=== PATIENT | female | born 1980 | race Caucasian/White ===

== ENCOUNTER 2019-11-29 15:15 | Emergency (ER) | payer SELFPAY ==
[2019-11-29 15:41] VITALS: BP 122/70; TEMP 97.9
[2019-11-29 15:44] VITALS: PULSE 91; BMI 23.0
[2019-11-29] MEDS ORDERED: ALBUTEROL SO4 HFA INHALER IH ONE ×3 (15:44→16:55)
[2019-11-29] MEDS ORDERED: ACETAMINOPHEN 325 MG TABLET (FP) PO ONE (15:44)
--- NOTE | 2019-11-29 15:57 | PDOC ---
History of Present Illness - General Chief Complaint: Cold Symptoms Stated Complaint: COUGHING/WEAK Time Seen by Provider: 11/29/19 15:52 History Source: Patient Exam Limitations: No Limitations - History of Present Illness Initial Comments: 11/29/19 15:53 39 year old female with coughing, generalized bodyaches and chest pain x 2 days. Patient reports that cough is non productive and her chest pain is only with forceful coughing. Denies fever or chills, sick contact or travel. Patient reports that she works in a [employer]. Is this a multiple visit Asthma Patient?: No Timing/Duration: reports: other (2 days) Severity: reports: mild Modifying Factors: improves with: coughing Associated Symptoms: reports: cough, muscle aches Past History - Travel Traveled outside of the country in the last 30 days: No Close contact w/someone who was outside of country & ill: No - Past Medical History Allergies/Adverse Reactions: Allergies Allergy/AdvReac Type Severity Reaction Status Date / Time No Known Allergies Allergy Verified 11/29/19 15:41 Home Medications: Ambulatory Orders Azithromycin [Zithromax 250mg Tablets -] 250 mg PO UTDICT #6 tab 11/29/19 Azithromycin [Zithromax 250mg Tablets -] 250 mg PO UTDICT #6 tab 11/29/19 COPD: No - Immunization History Immunization Up to Date: Yes - Psycho Social/Smoking Cessation Hx Smoking History: Never smoked Hx Alcohol Use: No Drug/Substance Use Hx: No Respiratory Specific PMHX - Complaint Specific PMHX Hx Airway Support: No Hx Allergic Rhinitis: No Hx Pulmonary Embolus: No Review of Systems - Review of Systems Able to Perform ROS?: Yes Is the patient limited Finnish proficient: No Constitutional: No: Chills, Fever HEENTM: No: Nose Pain, Throat Swelling Respiratory: Yes: Cough. No: Shortness of Breath, Wheezing Cardiac (ROS): No: Chest Pain ABD/GI: No: Poor Appetite, Poor Fluid Intake : No: Burning, Hematuria, Incontinence Musculoskeletal: No: Back Pain, Joint Pain Neurological: No: Numbness, Paresthesia *Physical Exam - Vital Signs Last Vital Signs Temp Pulse Resp BP Pulse Ox 97.9 F 91 H 20 122/70 100 11/29/19 15:42 11/29/19 15:42 11/29/19 15:42 11/29/19 15:42 11/29/19 15:42 - Physical Exam General Appearance: Yes: Nourished, Appropriately Dressed HEENT: positive: Pharynx Normal Neck: positive: Supple. negative: Lymphadenopathy (R), Lymphadenopathy (L) Respiratory/Chest: positive: Lungs Clear Cardiovascular: positive: Regular Rhythm, Regular Rate Extremity: positive: Normal Capillary Refill Neurologic: positive: Fully Oriented, Alert Medical Decision Making - Medical Decision Making 11/29/19 15:58 39 year old female with coughing, generalized bodyaches and chest pain x 2 days. Patient reports that cough is non productive and her chest pain is only with forceful coughing. Denies fever or chills, sick contact or travel. Patient reports that she works in a [employer]. 11/29/19 16:11 viral syndrome -chest xray -acetaminophen -albuterol pump 11/29/19 17:40 chest discomfort improved with albuterol pump chest xray with no infiltrates, rx: azithromycin d/c home with social distancing instructions Discharge - Discharge Information Problems reviewed: Yes Clinical Impression/Diagnosis: Viral syndrome Condition: Good Disposition: HOME - Admission No - Additional Discharge Information Prescriptions: Azithromycin [Zithromax 250mg Tablets -] 250 mg PO UTDICT #6 tab Azithromycin [Zithromax 250mg Tablets -] 250 mg PO UTDICT #6 tab - Follow up/Referral - Patient Discharge Instructions Patient Printed Discharge Instructions: DI for Viral Upper Respiratory Infection-Child Additional Instructions: Drink plenty fluids Rest Please continue to practice social distancing You may call 311 for information about covid testing Take ibuprofen or acetaminophen for pain or fever Return to emergency room for worsening of symptoms Print Language: YAKUT - Post Discharge Activity Work/Back to School Note: Back to Work
== END 2019-11-29 17:29 | disposition home or self-care (01) ==
LOC: JER 15:15
PROC: 3E0F7GC Introduction of Other Therapeutic Substance into Respiratory Tract, Via Natural or Artificial Opening (ICD-10-PCS; principal; 2019-11-29)
DX: J06.9 Acute upper respiratory infection, unspecified (principal); B97.89 Other viral agents as the cause of diseases classified elsewhere
CPT/HCPCS: 71045-TC-FY; 99284-25

== ENCOUNTER 2023-02-22 03:44 | Day surgery (SDC) | payer OTHER ==
[2023-02-21 10:48] VITALS: BMI 27.4
[2023-02-22] MEDS ORDERED: MIDAZOLAM HCL 2 MG/2 ML SINGLE DOSE VIAL ONE (14:30)
[2023-02-22] MEDS ORDERED: PROPOFOL 20 ML ONE ×2 (14:30→15:05)
[2023-02-22] MEDS ORDERED: oxyCODONE HCL 5 MG TABLET PO PRN ×2 (15:22→15:34)
[2023-02-22] MEDS ORDERED: ONDANSETRON 4 MG/2 ML VIAL IVPUSH PRN ×2 (15:22→15:34)
[2023-02-22] MEDS ORDERED: LACTATED RINGERS SOLUTION 1,000 ML IV SCH (15:30)
[2023-02-22] MEDS ORDERED: IBUPROFEN 600 MG TABLET (FP) PO PRN (15:34)
[2023-02-22] MEDS ORDERED: IBUPROFEN 800 MG/8 ML IJ IVPB PRN (15:34)
[2023-02-22] MEDS ORDERED: ELECTROLYTE-148 SOLN 1,000 ML IV SCH (15:45)
[2023-02-22 17:38] VITALS: RESP 20
[2023-02-22 18:38] VITALS: PULSE 88; TEMP 98
[2023-02-22 18:42] VITALS: BP 102/60
== END 2023-02-22 18:44 | disposition home or self-care (01) ==
LOC: JASU-SURG 03:44
PROVIDERS: ATTEND Obstetrics & Gynecology
PROC: 0UDB8ZX Extraction of Endometrium, Via Natural or Artificial Opening Endoscopic, Diagnostic (ICD-10-PCS; principal; 2023-02-22 14:00)
DX: N93.8 Other specified abnormal uterine and vaginal bleeding (principal)
CPT/HCPCS: 88305-TC; 94760

== ENCOUNTER 2023-02-27 11:49 | Emergency (ER) | payer OTHER ==
[2023-02-27 11:59] VITALS: BP 107/71; PULSE 98; RESP 18; TEMP 97.9; BMI 27.8
[2023-02-27] MEDS ORDERED: KETOROLAC TROMETHAMINE 15 MG/ML VIAL IVPUSH ONE (12:19)
[2023-02-27] MEDS ORDERED: KETOROLAC TROMETHAMINE 15 MG/ML VIAL ONE (12:33)
[2023-02-27 13:14] LABS: BASO % 0.5 % (0-2.0); EOS % 1.1 % (0-4.5); HEMATOCRIT 34.8 % (32.4-45.2); HEMOGLOBIN 11.5 GM/dL (10.7-15.3); MCH 25.9 pg (25.7-33.7); MCHC 32.9 g/dl (32.0-36.0); MEAN CELL VOLUME 78.6 fl (80-96); MEAN PLT VOLUME 7.8 fl (7.5-11.1); MONO % 10.8 % (3.8-10.2); NEUT % 61.6 % (42.8-82.8); PLATELET COUNT 264 10^3/uL (134-434); RBC 4.43 M/mm3 (3.60-5.2); RDW 15.7 % (11.6-15.6); WHITE BLOOD COUNT 7.1 K/mm3 (4.0-10.0)
[2023-02-27 13:48] LABS: ERYTHROCYTE SEDIMENTATION RATE 7 mm/hr (0-20)
[2023-02-27 15:37] LABS: INR 1.07 (0.83-1.09); PROTHROMBIN TIME (PATIENT) 12.4 SEC (9.7-13.0)
[2023-02-27 15:40] LABS: ACTIVATED PTT 29.4 SECONDS (25.2-36.5)
[2023-02-27 16:11] LABS: POTASSIUM 4.5 mmol/L (3.5-5.1)
[2023-02-27 16:13] LABS: CALCIUM 9.1 mg/dL (8.5-10.1)
[2023-02-27 16:14] LABS: ALBUMIN 3.4 g/dl (3.4-5.0); BLOOD UREA NITROGEN 7.7 mg/dL (7-18)
[2023-02-27 16:17] LABS: CREATININE 0.6 mg/dL (0.55-1.3)
[2023-02-27 16:19] LABS: BILIRUBIN,TOTAL 0.3 mg/dL (0.2-1); TOT PROT 6.7 g/dl (6.4-8.2)
== END 2023-02-27 16:13 | disposition home or self-care (01) ==
LOC: JER 11:49
PROC: 3E033NZ Introduction of Analgesics, Hypnotics, Sedatives into Peripheral Vein, Percutaneous Approach (ICD-10-PCS; principal; 2023-02-27)
PROC: 3E033GC Introduction of Other Therapeutic Substance into Peripheral Vein, Percutaneous Approach (ICD-10-PCS; 2023-02-27)
DX: M79.602 Pain in left arm (principal); R22.32 Localized swelling, mass and lump, left upper limb; L03.114 Cellulitis of left upper limb; I82.621 Acute embolism and thrombosis of deep veins of right upper extremity
CPT/HCPCS: 36415; 80053; 85025; 85610; 85651; 85730; 86850; 86900; 86901; 93971; 99284-25

== ENCOUNTER 2023-11-05 20:25 | Emergency (ER) | payer OTHER ==
[2023-11-05 20:31] VITALS: BP 121/77; PULSE 95; RESP 16; TEMP 98.4; BMI 28.1
[2023-11-05] MEDS ORDERED: IBUPROFEN 400 MG TABLET (FP) PO ONE (21:45)
[2023-11-05] MEDS: IBUPROFEN 400 MG TABLET (FP) PO ONE (21:57)
== END 2023-11-05 22:26 | disposition home or self-care (01) ==
LOC: JERFT 20:25
DX: S62.645A Nondisplaced fracture of proximal phalanx of left ring finger, initial encounter for closed fracture (principal); X50.9XXA Other and unspecified overexertion or strenuous movements or postures, initial encounter; Y93.61 Activity, american tackle football
CPT/HCPCS: 73130-TC-LT-FY; 99283-25